=== PATIENT | male | born 1990 | race Caucasian/White ===

== ENCOUNTER → 2023-05-29 14:21 | Outpatient (BNVA) | payer MEDICARE, MEDICAID, SELFPAY | PROVIDERS: PCP Nurse Practitioner Family; Visit Provider Nurse Practitioner Family | DX: R53.83 Other fatigue (principal); R68.83 Chills (without fever) | CPT/HCPCS: 80053; 84443; 85025; 87426 ==

== ENCOUNTER → 2023-06-05 08:50 | Outpatient (BNVA) | payer MEDICARE, MEDICAID, SELFPAY | PROVIDERS: PCP Nurse Practitioner Family; Visit Provider Nurse Practitioner Family | DX: R79.89 Other specified abnormal findings of blood chemistry (principal) | CPT/HCPCS: 84439; 84443; 84480 ==

== ENCOUNTER → 2024-03-10 10:30 | Outpatient (BNVA) | payer MEDICARE, MEDICAID, SELFPAY | PROVIDERS: PCP Nurse Practitioner Family; Visit Provider Family Medicine | DX: R79.89 Other specified abnormal findings of blood chemistry (principal); F31.9 Bipolar disorder, unspecified; R53.83 Other fatigue | CPT/HCPCS: 80053; 82607; 84439; 84443; 85025 ==